=== PATIENT | male | born 1990 | race Hispanic/Latino ===

== ENCOUNTER 2020-09-13 20:54 | Emergency (ER) | payer SELFPAY ==
[2020-09-13] MEDS ORDERED: CEFAZOLIN 1 GM VIAL ONE (21:17)
[2020-09-13] MEDS ORDERED: Morphine 4 MG/ML VIAL ONE (21:20)
[2020-09-13] MEDS ORDERED: Ondansetron PF 4 MG/2 ML Vial ONE (21:20)
[2020-09-13] MEDS ORDERED: Lidocaine 1% (PF) 30 ML VIAL ONE (21:35)
[2020-09-14] MEDS ORDERED: Bacitracin 1 PK ONE (00:40)
== END 2020-09-13 23:08 | disposition home or self-care (01) ==
LOC: ERS 20:54
DX: S67.195A Crushing injury of left ring finger, initial encounter (principal); S61.215A Laceration without foreign body of left ring finger without damage to nail, initial encounter; W23.0XXA Caught, crushed, jammed, or pinched between moving objects, initial encounter
CPT/HCPCS: 12001; 96374; 96375; J0690; J2001; J2270; J2405